=== PATIENT | male | born 1935 | race Caucasian/White ===

== ENCOUNTER 2022-01-02 02:31 | Emergency (ER) | payer MEDICARE ==
[~2022-01-02] VITALS: Ht 193 cm; Wt 79.4 kg
[~2022-01-02 02:31] MED LIST: AEC81 PO; ALLO100T PO; ATOR10 PO; QUIN40TA37 PO; TAMS0.4C32 PO; TRIA1CAP87 PO
[2022-01-02] MEDS ORDERED: ONDANSETRON ODT 4MG TAB SL ONE (03:00)
[2022-01-02 04:22] VITALS: BP 158/89
[2022-01-02] MEDS ORDERED: ONDA4TAB10 PO (06:34)
== END 2022-01-02 06:45 | disposition home or self-care (01) ==
LOC: EDH 02:31
DX: B34.9 Viral infection, unspecified (principal); R11.2 Nausea with vomiting, unspecified; E03.9 Hypothyroidism, unspecified; E78.00 Pure hypercholesterolemia, unspecified; Z79.82 Long term (current) use of aspirin; I10 Essential (primary) hypertension; Z88.0 Allergy status to penicillin